=== PATIENT | female | born 1975 | race Caucasian/White ===

== ENCOUNTER 2017-11-22 02:10 | Emergency (ER) | payer MEDICAID ==
[~2017-11-22] VITALS: Ht 172.7 cm; Wt 89.8 kg
[2017-11-22 02:15] VITALS: BP 137/85
--- NOTE | 2017-11-22 02:30 | NUR ---
42 Y/O F W/C/O EIGHT WKS , ABD VAGINAL SPOTTING X 0100 AM TODAY AND PELVIC CRAMPING THAT TOOK PLACED YESTERDAY. PT DENIES ANY PAIN AT THE MOMENT. LMP 08/2017. MED HX PRECLAMSIA IN PREVIOUS PREGNANCIES. NO S/S DISTRESS NOTED. ER MADE AWARE.
[2017-11-22 02:44] LABS: BASOPHILS # (AUTO) 0.2 K/uL (0.00-0.22); BASOPHILS % (AUTO) 2.5 % (0.0-2.0); EOSINOPHILS # (AUTO) 0.1 K/uL (0-0.4); EOSINOPHILS % (AUTO) 0.7 % (0.0-4.0); HEMATOCRIT 34.4 % (36-48); HEMOGLOBIN 11.3 g/dL (12.0-16.0); LYMPHOCYTES # (AUTO) 3.2 K/uL (2.5-16.5); LYMPHOCYTES % (AUTO) 35.6 % (20.5-51.1); MEAN CORPUSCULAR HEMOGLOBIN 27 pg (27-31); MEAN CORPUSCULAR HGB CONC 33 g/dL (33-37); MEAN CORPUSCULAR VOLUME 83.2 fL (80-94); MONOCYTES # (AUTO) 0.4 K/uL (0.8-1.0); MONOCYTES % (AUTO) 4.8 % (1.7-9.3); NEUTROPHILS # (AUTO) 5.2 K/uL (1.8-7.7); NEUTROPHILS % (AUTO) 56.4 % (42.2-75.2); PLATELET COUNT (AUTO) 265 K/uL (140-450); RED BLOOD CELL COUNT(AUTO) 4.14 MIL/uL (4.20-5.40); RED CELL DISTRIBUTION WIDTH 12.8 % (11.6-13.7); WHITE BLOOD COUNT (AUTO) 9.1 K/uL (4.8-10.8)
[2017-11-22 02:47] LABS: APPEARANCE,URINE TURBID (CLEAR); BILIRUBIN,URINE NEGATIVE (NEGATIVE); BLOOD, URINE 3+ (NEGATIVE); COLOR,URINE RED (YELLOW); LEUKOCYTE ESTERASE ,URINE 1+ (NEGATIVE); NITRITE, URINE POSITIVE (NEGATIVE); UGLUCOSE NEGATIVE (NEGATIVE)
[2017-11-22 02:55] LABS: ANION GAP 13.4 (8-16); CARBON DIOXIDE 24.5 mmol/L (21-32); CREATININE 0.7 mg/dL (0.6-1.3); POTASSIUM 3.9 mmol/L (3.5-5.1)
[2017-11-22 03:01] LABS: ALBUMIN 3.1 g/dL (3.4-5.0); TOTAL BILIRUBIN 0.2 mg/dL (0.0-1.0)
[2017-11-22 03:12] LABS: RBC,URINE TOO NUMEROUS TO COUN /HPF (0-5); WBC,URINE 0-5 (RARE) /HPF (0-5)
--- NOTE | 2017-11-22 03:13 | NUR ---
PT RESTING IN BED, NO S/S OF DISTRESS NOTED. AWATING FOR LAB RESULTS.
--- NOTE | 2017-11-22 04:13 | NUR ---
PT TAKEN FOR ULTRASOUND VIA WHEELCHAIR.
--- NOTE | 2017-11-22 04:32 | NUR ---
PT BACK FROM ULTRASOUND
[2017-11-22 04:52] VITALS: BP 125/78
== END 2017-11-22 04:52 | disposition home or self-care (01) ==
LOC: MED 02:10
DX: O20.0 Threatened abortion (principal); R82.79 Other abnormal findings on microbiological examination of urine
CPT/HCPCS: 36415; 76801; 80053; 81001; 81025; 84702; 85025; 86900; 86901; 87086; 99285